=== PATIENT | female | born 1975 | race Caucasian/White ===

== ENCOUNTER 2017-09-26 21:20 | Emergency (ER) | payer OTHER ==
[~2017-09-26] VITALS: Ht 160 cm; Wt 68.9 kg
[2017-09-26 21:26] VITALS: Ht 160 cm; Wt 68.9 kg
[2017-09-26 22:32] LABS: BASOPHIL % 0.4 % (0-2); PLATELET COUNT 234 x10^3mcL (130-400)
[2017-09-26 22:35] LABS: RED CELL DISTRIBUTION WIDTH 14.7 % (11.5-14.5)
[2017-09-26 22:52] LABS: BILIRUBIN TOTAL 0.3 mg/dL (0.20-1.00); CARBON DIOXIDE 35.6 mmol/L (21-32); POTASSIUM SERUM 3.5 mmol/L (3.5-5.1); TOTAL PROTEIN, SERUM 7.1 g/dL (6.4-8.2)
[2017-09-26 22:54] LABS: ALBUMIN 3.3 g/dL (3.4-5.0)
[2017-09-26 22:56] LABS: CREATININE SERUM 6.7 mg/dL (0.6-1.0)
[2017-09-26 23:26] VITALS: BP 112/57
== END 2017-09-26 23:39 | disposition home or self-care (01) ==
LOC: ED 21:20
PROVIDERS: Emergency Medicine
DX: T82.43XA Leakage of vascular dialysis catheter, initial encounter (principal); N18.6 End stage renal disease; Z99.2 Dependence on renal dialysis
CPT/HCPCS: 36415

== ENCOUNTER 2017-09-28 21:09 | Emergency (ER) | payer OTHER ==
[~2017-09-28] VITALS: Ht 160 cm; Wt 70.8 kg
[2017-09-28 21:28] VITALS: BP 112/74; Ht 160 cm; Wt 70.8 kg
== END 2017-09-28 22:08 | disposition home or self-care (01) ==
LOC: ED 21:09
DX: Z48.01 Encounter for change or removal of surgical wound dressing (principal); Z99.2 Dependence on renal dialysis

== ENCOUNTER 2018-06-23 05:14 | Inpatient (IN) | payer MEDICAID ==
[~2018-06-23] VITALS: Ht 160 cm; Wt 71.8 kg
[2018-06-23 05:20] VITALS: Ht 160 cm; Wt 71.8 kg
[2018-06-23 06:23] LABS: BASOPHIL % 0.7 % (0-2); PLATELET COUNT 260 x10^3mcL (130-400)
[2018-06-23 06:50] LABS: BILIRUBIN TOTAL 0.37 mg/dL (0.20-1.00); CALCIUM 8.3 mg/dL (8.5-10.1); CARBON DIOXIDE 24.9 mmol/L (21-32); POTASSIUM SERUM 3.6 mmol/L (3.5-5.1); TOTAL PROTEIN, SERUM 6.4 g/dL (6.4-8.2)
[2018-06-23 06:54] LABS: RED CELL DISTRIBUTION WIDTH 15.4 % (11.5-14.5)
[2018-06-23 06:55] LABS: CREATININE SERUM 15.4 mg/dL (0.6-1.0)
[2018-06-23 13:08] VITALS: BP 97/59
[2018-06-23 13:51] LABS: MAGNESIUM 2.4 mg/dL (1.8-2.4); PHOSPHOROUS 4.5 mg/dL (2.5-4.9); T3 TOTAL 1.2 ng/mL
[2018-06-23 14:05] LABS: FREE T4 0.94 ng/dL (0.76-1.46); FREE THYROXINE INDEX 2.7 ug/dL (1.4-4.5); T4(THYROXINE) 7.8 ug/dL (4.7-13.3)
[2018-06-23] MEDS ORDERED: REN800 PO (16:31)
[2018-06-23] MEDS ORDERED: CALCITRIOL0.5 MCG PO (17:29)
[2018-06-23] MEDS ORDERED: NEPHRO-VITE VITA1 EA PO (17:29)
[2018-06-23 17:58] VITALS: BP 130/79
[2018-06-23 20:57] VITALS: BP 106/55
[2018-06-24 05:53] VITALS: BP 106/59
[2018-06-24 06:04] LABS: BASOPHIL % 0.4 % (0-2); PLATELET COUNT 249 x10^3mcL (130-400)
[2018-06-24 06:37] LABS: CALCIUM 8.5 mg/dL (8.5-10.1); CARBON DIOXIDE 21.1 mmol/L (21-32); POTASSIUM SERUM 3.9 mmol/L (3.5-5.1); RED CELL DISTRIBUTION WIDTH 16.3 % (11.5-14.5)
[2018-06-24 06:41] LABS: CREATININE SERUM 17.9 mg/dL (0.6-1.0)
[2018-06-24 08:09] VITALS: BP 109/61
[2018-06-24 10:38] VITALS: BP 109/61
[2018-06-24 11:55] VITALS: BP 103/60
[2018-06-24 11:57] VITALS: BP 103/60
== END 2018-06-24 13:05 | disposition home or self-care (01) | DRG 203 ==
LOC: ED 05:14 → DU 11:17
PROVIDERS: Emergency Medicine; Internal Medicine
DX: M94.0 Chondrocostal junction syndrome [Tietze] (principal); I12.0 Hypertensive chronic kidney disease with stage 5 chronic kidney disease or end stage renal disease; E44.0 Moderate protein-calorie malnutrition; E83.51 Hypocalcemia; N18.6 End stage renal disease; Z68.27 Body mass index [BMI] 27.0-27.9, adult; Z99.2 Dependence on renal dialysis
CPT/HCPCS: 83880; 84439; 85378; A9540; Q0092